=== PATIENT | male | born 1975 | race Caucasian/White ===

== ENCOUNTER 2025-02-07 19:55 | Observation (INO) | payer BC ==
[2025-02-07 20:19] LABS: #Basophils 0.08 10x3/uL (0.0-0.2); #Eosinophils 0.05 10x3/uL (0.0-0.5); #Monocytes 0.54 10x3/uL (0.0-1.1); #Neutrophils 4.70 10x3/uL (1.5-8.4); %Basophils 1.2 % (0.0-2.0); %Eosinophils 0.7 % (0.0-6.0); %Lymphocytes 20.7 % (18.0-47.0); %Monocytes 7.9 % (0.0-10.0); %Neutrophils 69.2 % (40.0-75.0); Hematocrit 39.3 % (38.8-50.0); Hemoglobin 13.6 g/dL (13.5-17.5); Mean Corpuscular Hemoglobin 28.8 pg (27.0-33.0); Mean Corpuscular Volume 83.1 fL (81.2-95.1); Platelet Count 177 10x3/uL (150-450); Red Blood Cell (RBC) Count 4.73 10x6/uL (4.32-5.72); White Blood Cell (WBC) Count 6.80 10x3/uL (3.5-10.5)
[2025-02-07 20:37] LABS: ALT (SGPT) 24 U/L (Less than 45); AST (SGOT) 31 U/L (11-34); Albumin 4.4 g/dL (3.1-4.5); Alkaline Phosphatase 68 U/L (40-110); Anion Gap 15 mmol/L (10-20); BUN (Urea Nitrogen) 16 mg/dL (8.4-25.7); Bilirubin, Total 0.6 mg/dL (0.3-1.2); Calc. Creatinine Clearance 0 mL/min (70-130); Calcium 9.2 mg/dL (7.8-10.44); Carbon Dioxide 24 mmol/L (22-29); Chloride 106 mmol/L (98-107); Globulin 2.6 g/dL (2.4-3.5); Glucose 97 mg/dL (70-105); Potassium 4.1 mmol/L (3.5-5.1); Sodium 141 mmol/L (136-145)
[2025-02-07 20:38] LABS: Troponin I Less than 0.010 ng/mL (< 0.028)
[2025-02-07] MEDS ORDERED: Aspirin Chewable 81 MG TAB ONE (20:47)
[2025-02-07] MEDS ORDERED: Acetaminophen 325 MG TAB PO PRN (21:19)
[2025-02-07] MEDS ORDERED: Melatonin 3 MG TAB PO PRN (21:19)
[2025-02-07] MEDS ORDERED: Calcium Carbonate 500 MG ChewTAB PO PRN (21:19)
[2025-02-07] MEDS ORDERED: Senokot S 8.6-50 MG TAB PO PRN (21:19)
[2025-02-07] MEDS ORDERED: Electrolyte Replacement Protocol 1 EACH FS PRN (21:30)
[2025-02-07 21:42] LABS: Cardiac Risk 3.2 (Less than 4.5); Cholesterol 162.0 mg/dl (< 200 Desired); HDL Cholesterol 51.0 mg/dL (>60 Neg Risk); LDL Cholesterol, Calculated 90.0 mg/dL; Triglycerides 104.0 mg/dL (Less than 150)
[2025-02-07] MEDS ORDERED: Nitroglycerin 0.4 MG TAB (25 Tab Bottle) SL PRN (21:51)
[2025-02-07] MEDS ORDERED: hydrALAZINE 20 MG/ML VIAL SLOW IVP PRN (21:52)
[2025-02-07 22:11] VITALS: BMI 25.7
[2025-02-07 22:36] LABS: Troponin I Less than 0.010 ng/mL (< 0.028)
[2025-02-08] MEDS: Aspirin 81 mg Enteric Coated Tablet PO SCH (01:35)
[2025-02-08 03:54] LABS: #Basophils 0.08 10x3/uL (0.0-0.2); #Eosinophils 0.09 10x3/uL (0.0-0.5); #Monocytes 0.43 10x3/uL (0.0-1.1); #Neutrophils 2.81 10x3/uL (1.5-8.4); %Basophils 1.5 % (0.0-2.0); %Eosinophils 1.7 % (0.0-6.0); %Lymphocytes 34.4 % (18.0-47.0); %Monocytes 8.3 % (0.0-10.0); %Neutrophils 53.9 % (40.0-75.0); Hematocrit 37.0 % (38.8-50.0); Hemoglobin 12.9 g/dL (13.5-17.5); Mean Corpuscular Hemoglobin 28.9 pg (27.0-33.0); Mean Corpuscular Volume 83.0 fL (81.2-95.1); Platelet Count 155 10x3/uL (150-450); Red Blood Cell (RBC) Count 4.46 10x6/uL (4.32-5.72); White Blood Cell (WBC) Count 5.21 10x3/uL (3.5-10.5)
[2025-02-08 04:09] LABS: Anion Gap 10 mmol/L (10-20); BUN (Urea Nitrogen) 14 mg/dL (8.4-25.7); Calc. Creatinine Clearance 125 mL/min (70-130); Calcium 8.9 mg/dL (7.8-10.44); Carbon Dioxide 28 mmol/L (22-29); Chloride 106 mmol/L (98-107); Glucose 79 mg/dL (70-105); Potassium 3.9 mmol/L (3.5-5.1); Sodium 140 mmol/L (136-145)
[2025-02-08 07:45] VITALS: TEMP 97.9
[2025-02-08] MEDS: Aspirin 325 MG TAB PO SCH (09:07)
[2025-02-08] MEDS: BuPROPion XL 150 MG ER.TAB PO SCH (09:07)
[2025-02-08] MEDS: Enoxaparin 40 MG (0.4 mL) SYRINGE SC SCH (09:08)
[2025-02-08 13:12] VITALS: BP 141/76
[2025-02-09] MEDS ORDERED: Metoprolol Succinate XL 25 MG ER.TAB PO SCH (09:00)
== END 2025-02-08 16:48 | disposition home or self-care (01) ==
LOC: CSHERS 19:55 → CSHTELE 21:26
PROVIDERS: ADMIT Internal Medicine; ATTEND Internal Medicine
PROC: B24BZZZ Ultrasonography of Heart with Aorta (ICD-10-PCS; principal; 2025-02-08)
DX: R07.2 Precordial pain (principal); I49.3 Ventricular premature depolarization; I47.29 Other ventricular tachycardia; I48.0 Paroxysmal atrial fibrillation; E11.9 Type 2 diabetes mellitus without complications; F41.9 Anxiety disorder, unspecified; F32.A Depression, unspecified; Z98.84 Bariatric surgery status; Z87.891 Personal history of nicotine dependence; Z79.899 Other long term (current) drug therapy
CPT/HCPCS: 36415; 71045; 80048; 80053; 80061; 83036; 84443; 84484; 85025; 85379; 93005; 93306; 94760; G0378; J7030